=== PATIENT | male | born 1955 | race Caucasian/White ===

== ENCOUNTER 2018-06-03 12:34 | Day surgery (SDC) | payer BC ==
[~2018-06-03] VITALS: Ht 175.3 cm; Wt 124.0 kg
[~2018-06-03 12:34] MED LIST: AMLO-15 PO; ASPI-817 PO; ATOR40TA68 PO; CARV25TA79 PO; FAMO20TA18 PO; HYDR25TA6 PO
[2018-06-03 13:55] VITALS: Ht 175.3 cm; Wt 124.0 kg
[2018-06-03] MEDS ORDERED: METOPROLOL PO (14:10)
--- NOTE | 2018-06-03 14:53 | PREAC ---
Date/Time of Note Date/Time of Note DATE: 06/03/18 TIME: 14:52 Anesthesia Eval and Record Evaluation Time Pre-Procedure Interview DATE: 06/03/18 TIME: 14:52 Age 63 Sex male NPO: 8 hrs Preoperative diagnosis screening Planned procedure colonoscopy Past Medical History Past Medical History: Includes Cardio: HTN, Dyslipidemia GI: GERD, Obesity Surgery & Anesthesia Issues No known issue Meds Anticoagulation: No Beta Brian within 24 hr: Yes Reason Beta Brian not given: Pt. not on B-Brian Reported Medications [Metoprolol] No Conflict Check, PO 06/03/18 Aspirin* (Aspirin* EC) 81 Mg Tablet.dr, 81 MG PO DAILY, TAB 08/31/15 Famotidine* (Famotidine*) 20 Mg Tablet, 20 MG PO DAILY, #30 TAB 08/31/15 Discontinued Reported Medications Hydrochlorothiazide* (Hydrochlorothiazide*) 25 Mg Tab, 25 MG PO DAILY, #30 TAB 08/31/15 Amlodipine-Benazepril (Amlodipine-Benazepril) 10-20 Mg Capsule, 1 CAP PO DAILY, #30 CAP 08/31/15 Atorvastatin* (Atorvastatin*) 40 Mg Tablet, 20 MG PO QHS, #30 TAB 08/31/15 Carvedilol* (Carvedilol*) 25 Mg Tablet, 25 MG PO BID, #60 TAB 08/31/15 Meds reviewed: Yes Allergies Coded Allergies: No Known Allergy (Unverified , 08/31/15) Allergies Reviewed: Yes Labs/Studies Labs Reviewed: Reviewed by anesthesiologist test: N/A Studies: ECG (n/a), CXR (n/a) Pre-procedure Exam Airway: Adequate mouth opening Mallampati: Mallampati I Teeth: Normal Lung: Normal Heart: Normal ASA Physical Status ASA physical status: 2 Emergency: None Planned Anesthetic General/MAC: MAC Planned Pain Management Parenteral pain med Pre-operative Attestations Prior to commencing anesthesia and surgery, the patient was re-evaluated, there was verification of: *The patient's identity *The results of appropriate recent lab work and preoperative vital signs *The above evaluation not changing prior to induction *Anesthetic plan, risk benefits, alternative and complications discussed with patient/family; questions answered; patient/family understands, accepts and wishes to proceed. CLAYTON MCHUGH MD Jun 03, 2018 14:53
[2018-06-03] MEDS ORDERED: ONDANSETRON 4 MG INJ IV PRN (15:00)
[2018-06-03] MEDS ORDERED: PROPOFOL 20 ML ONE (15:23)
[2018-06-03] MEDS ORDERED: FENTAnyl 50 MCG/ML VIAL ONE (15:23)
[2018-06-03 16:24] VITALS: BP 150/90; RESP 18
--- NOTE | 2018-06-03 20:30 | PAC ---
Date/Time of Note Date/Time of Note DATE: 06/03/18 TIME: 20:29 Post-Anesthesia Notes Post-Anesthesia Note Last documented vital signs Vital Signs Date Temp Pulse Resp B/P (MAP) Pulse Ox O2 O2 Flow FiO2 Time Delivery Rate 06/03/18 98.0 75 18 150/90 96 Room Air 16:24 (110) Activity: WNL Respiratory function: WNL Cardiovascular function: WNL Mental status: Baseline Pain reasonably controlled: Yes Hydration appropriate: Yes Nausea/Vomiting absent: No CLAYTON MCHUGH MD Jun 03, 2018 20:30
== END 2018-06-03 17:09 | disposition home or self-care (01) ==
LOC: GIL 12:34
PROVIDERS: ATTEND Internal Medicine Gastroenterology
DX: Z12.11 Encounter for screening for malignant neoplasm of colon (principal); D12.2 Benign neoplasm of ascending colon; D12.4 Benign neoplasm of descending colon; K64.8 Other hemorrhoids; I10 Essential (primary) hypertension; E78.5 Hyperlipidemia, unspecified; E66.9 Obesity, unspecified; Z68.41 Body mass index [BMI] 40.0-44.9, adult
CPT/HCPCS: 45380; 45385; 88305; J3010; Z7610